=== PATIENT | female | born 1940 | race Caucasian/White ===

== ENCOUNTER 2017-07-26 11:07 | Inpatient (IN) ==
[2017-07-26] MEDS ORDERED: *HR* OxyCODONE Immed Rel 5 MG TABLET PO PRN (15:17)
[2017-07-26] MEDS ORDERED: *HR* LORazepam 0.5 MG TABLET PO PRN (15:22)
--- NOTE | 2017-07-26 15:30 | Internal Med History&Physical ---
Date of Encounter: 07/26/17 Time of Encounter: 15:28 Assessment and Plan (1) Arthritis of knee, right Current visit: No Status: Chronic Patient had a degenerative arthritis of the right knee and subsequently underwent surgery (2) Status post total knee replacement, right Current visit: No Status: Acute Patient had a right total knee replacement for osteoarthritis Internal Medicine - H&P: HPI Chief complaint: Patient had a right total knee replacement due to osteoarthritis Admitted From: Hospital to Hospital Transfer Plans for Post Hospital Care: Home History of present illness: Ms. Lucas is a 76 year old female She is here now for rehabilitation. Past Med Surg Social Fam HX - Past Medical History Medical history: asthma, GERD, hyperlipidemia, hypertension, thyroid disease, other Psychiatric history: no psych history - Past Surgical History Surgical History: cholecystectomy, hysterectomy, orthopedic, other, sinus surgery, thyroidectomy, other - Social History Smoking Status: Never smoker Smokeless Tobacco Status: No Alcohol use: none Drug use: none Internal Medicine - H&P: Meds Esomeprazole Magnesium [Nexium] 40 mg PO DAILY 07/09/15 [History] amLODIPine [Norvasc] 10 mg PO DAILY 07/09/15 [History] Ezetimibe 10 mg PO DAILY 06/09/17 [History] Gemfibrozil [Lopid] 600 mg PO BID 06/09/17 [History] Ibuprofen [Motrin] 600 mg PO Q6HR PRN 06/09/17 [History] Levothyroxine Sodium [Levoxyl] 100 mcg PO 0630 06/09/17 [History] Mv-Mn/FA/Vit K/Lycop/Lut/Coq10 [Daily Multivitamin Capsule] 1 tab PO DAILY 06/09 [History] Aspirin Enteric Coated [Aspirin EC] 325 mg PO DAILY #21 tablet. 07/24/17 [Rx] Biotin 300 mcg PO DAILY 07/24/17 [History] Budesonide/Formoterol 160/4.5 [Symbicort 160/4.5] 2 puff IH BIDR 07/24/17 [ History] LORazepam [Ativan] 0.5 mg PO DAILY PRN 07/24/17 [History] LORazepam [Ativan] 0.5 mg PO DAILY PRN #5 tablet 07/24/17 [Rx] Montelukast [Singulair] 10 mg PO HS 07/24/17 [History] OxyCODONE Immed Rel [Roxicodone 5 MG] 5 mg PO Q6HR PRN #28 tablet 07/24/17 [Rx] 3 Allergy/AdvReac Type Severity Reaction Status Date / Time Penicillins Allergy Itching Verified 07/24/17 09:26 Sulfa (Sulfonamide Allergy Itching Verified 07/24/17 09:26 Antibiotics) Espzdii-Boa-Vcd Reductase AdvReac Muscle Pain Verified 07/24/17 09:26 Inhibitor [Statins] All Systems PM: A 10-system review of systems was performed and is negative for pertinent findings except as documented above in the HPI. - Constitutional Vitals: Temp Pulse Resp BP Pulse Ox 97.8 F 103 16 160/74 95 07/26/17 15:04 07/26/17 15:04 07/26/17 15:04 07/26/17 15:04 07/26/17 15:04 - Head Head exam: Present: atraumatic, normal inspection, normocephalic - Neck Neck exam general surgery: Present: supple, trachea midline. Absent: lymphadenopathy - Respiratory Respiratory exam: Present: CTAB. Absent: accessory muscle use, rales, rhonchi, wheezes - Cardiovascular Cardiovascular exam: Present: RRR, +S1, +S2. Absent: diastolic murmur, gallop, rubs, systolic murmur Internal Med - H&P Results - Labs Labs: This lab is pending
[2017-07-26] MEDS: traMADol 50 MG TABLET PO PRN ×2 (15:50→23:16)
[2017-07-26] MEDS: Budesonide/Formoterol 160/4.5 MDI IH SCH (22:58)
[2017-07-27 05:31] LABS: Basophils % 0.2 %; Eosinophils # 0.1 K/mcL (0.0-0.6); Eosinophils % 0.6 %; Hematocrit 25.3 % (35.3-44.9); Hemoglobin 8.7 g/dL (11.5-15.4); Immature Granulocytes % 0.5 % (0-4); Lymphocytes # 1.5 K/mcL (0.6-4.6); Lymphocytes % 15.3 %; Mean Corpuscular HGB Conc 34.4 g/dL (31.6-35.5); Mean Corpuscular Hemoglobin 30.5 pg (28.0-33.3); Mean Corpuscular Volume 88.8 fL (83.0-100.0); Mean Platelet Volume 10.3 fL (9.4-12.4); Monocytes # 1.2 K/mcL (0.0-1.3); Monocytes % 12.4 %; Neutrophils # 6.7 K/mcL (1.6-8.9); Platelet Count 204 K/mcL (140-400); Red Blood Count 2.85 M/mcL (3.82-4.97)
[2017-07-27 05:36] LABS: INR 1.1
[2017-07-27 05:39] LABS: Activated Partial Thrombo Time 32.1 Seconds (26.0-36.0)
[2017-07-27 05:48] LABS: BUN/Creatinine Ratio 13 (6-26); Blood Urea Nitrogen 8 mg/dL (7-20); Calcium 9.1 mg/dL (8.6-10.8); Carbon Dioxide 23 mEq/L (19-29); Chloride 101 mEq/L (98-109); Glucose 105 mg/dL (70-99); Osmolality,Calculated 277 (280-300); Potassium 3.8 mEq/L (3.5-4.5); Sodium 134 mEq/L (136-145); eGFR For African Americans > 60 (> 60); eGFR For Non-African Americans > 60 (> 60)
[2017-07-27] MEDS: traMADol 50 MG TABLET PO PRN ×2 (06:00→17:49)
[2017-07-27] MEDS: Aspirin 325 MG TABLET PO SCH (09:38)
[2017-07-27] MEDS: amLODIPine 5 MG TABLET PO SCH (09:39)
[2017-07-27] MEDS: Ibuprofen 600 MG TABLET PO PRN (09:44)
[2017-07-27] MEDS: Budesonide/Formoterol 160/4.5 MDI IH SCH ×2 (09:45→22:15)
--- NOTE | 2017-07-27 20:42 | Internal Med Progress Note ---
Date of Encounter: 07/27/17 Time of Encounter: 20:40 - Assessment and plan (1) Status post total knee replacement, right Current Visit: Yes Status: Acute Assessment and plan: stable constipated PRN laxative increase fluid intake (2) Hypertension Current Visit: No Status: Chronic Assessment and plan: stable no acute issues Qualifiers: Hypertension type: unspecified secondary hypertension Qualified Code(s): I15.9 - Secondary hypertension, unspecified; I15 - Secondary hypertension (3) Thyroid disease Current Visit: No Status: Chronic - Subjective Interval history: seen for the first time no acute issues except for constipation . cross coverage - Constitutional Vitals: Temp Pulse Resp BP Pulse Ox 97.9 F 93 18 139/73 94 07/27/17 11:00 07/27/17 11:00 07/27/17 11:00 07/27/17 11:00 07/27/17 11:00 General appearance: Present: A&O X 3, pleasant, no acute distress, answers questions appropriately - Head Head exam: Present: atraumatic - Eye Eye exam: Present: EOMI, PERRL. Absent: scleral icterus, conjuntiva pink - ENT ENT exam: Present: normal exam - Neck Neck exam general surgery: Present: supple. Absent: nuchal rigidity - Respiratory Respiratory exam: Present: CTAB. Absent: respiratory distress, rhonchi, stridor , wheezes - Cardiovascular Cardiovascular exam: Present: RRR, +S1, +S2. Absent: irregular rhythm, JVD - GI/Abdominal GI/Abdominal exam: Present: normal bowel sounds, soft. Absent: rebound, rigid, tenderness - Extremities Exam Extremities exam: Absent: pedal edema, tenderness - Neurological Exam Neurological exam: Present: CN II-XII intact, oriented X3, strengths equal and symetr throughout. Absent: facial droop, speech deficit Internal Medicine: Result - Labs CBC & Chem 7: 07/27/17 05:10 07/27/17 05:10 Labs: Short CBC 07/27/17 Range/Units 05:10 WBC 9.5 (4.3-11.1) K/mcL Hgb 8.7 L (11.5-15.4) g/dL Hct 25.3 L (35.3-44.9) % Plt Count 204 (140-400) K/mcL Neutrophils # 6.7 (1.6-8.9) K/mcL BMP 07/27/17 05:10 Sodium 134 L Potassium 3.8 Chloride 101 Carbon Dioxide 23 BUN 8 Creatinine 0.63 Glucose 105 H Calcium 9.1 - ABG Interpretation ABG results: PT/INR, D-dimer PT 12.0 Seconds (9.4-12.1) 07/27/17 05:10 - VTE Documentation of Mechanical Device: Graduated compression elastic hosiery Consult Discharge Plan - Plan Referrals: Nima Salmon MD [Primary Care Provider] -
[2017-07-28] MEDS: Ibuprofen 600 MG TABLET PO PRN ×2 (06:38→16:57)
[2017-07-28] MEDS: amLODIPine 5 MG TABLET PO SCH (08:19)
[2017-07-28] MEDS: traMADol 50 MG TABLET PO PRN ×2 (08:19→16:52)
[2017-07-28] MEDS: Aspirin 325 MG TABLET PO SCH (08:19)
[2017-07-28] MEDS: Budesonide/Formoterol 160/4.5 MDI IH SCH ×2 (09:59→21:31)
--- NOTE | 2017-07-28 17:44 | Internal Med Progress Note ---
Date of Encounter: 07/28/17 Time of Encounter: 17:42 - Assessment and plan (1) Status post total knee replacement, right Current Visit: Yes Status: Acute Assessment and plan: stable Pian well controlled med s adjusted (2) Hypertension Current Visit: No Status: Chronic Assessment and plan: stable no new change Qualifiers: Hypertension type: unspecified secondary hypertension Qualified Code(s): I15.9 - Secondary hypertension, unspecified; I15 - Secondary hypertension (3) Thyroid disease Current Visit: No Status: Chronic Assessment and plan: stable on meds will get TSH - Subjective Interval history: no new complains interested in getting ativan every night nd decreasing her ultram to once a day only as it makes her naused pain is well controlled and doesn't seems to be an issue for her - Constitutional Vitals: Temp Pulse Resp BP Pulse Ox 98.1 F 90 16 128/75 97 07/28/17 07:00 07/28/17 07:00 07/28/17 07:00 07/28/17 07:00 07/28/17 07:00 General appearance: Present: A&O X 3, pleasant, no acute distress, answers questions appropriately - Head Head exam: Present: atraumatic - Eye Eye exam: Present: EOMI, PERRL - Neck Neck exam general surgery: Present: supple. Absent: tenderness, nuchal rigidity - Respiratory Respiratory exam: Present: CTAB. Absent: respiratory distress, rhonchi, stridor , tachypnea - Cardiovascular Cardiovascular exam: Present: RRR, +S1, +S2. Absent: irregular rhythm, JVD - GI/Abdominal GI/Abdominal exam: Present: normal bowel sounds, soft. Absent: distended, firm , guarding, rebound, rigid - Neurological Exam Neurological exam: Present: CN II-XII intact, oriented X3, no focal deficits, strengths equal and symetr throughout. Absent: facial droop, speech deficit Internal Medicine: Result - Labs CBC & Chem 7: 07/27/17 05:10 07/27/17 05:10 - ABG Interpretation ABG results: PT/INR, D-dimer PT 12.0 Seconds (9.4-12.1) 07/27/17 05:10 - VTE Documentation of Mechanical Device: Graduated compression elastic hosiery Consult Discharge Plan - Plan Referrals: Nima Salmon MD [Primary Care Provider] -
[2017-07-28] MEDS: *HR* LORazepam 0.5 MG TABLET PO SCH (21:31)
[2017-07-29] MEDS: Ibuprofen 600 MG TABLET PO PRN ×3 (03:33→18:53)
[2017-07-29] MEDS: amLODIPine 5 MG TABLET PO SCH (08:01)
[2017-07-29] MEDS: Aspirin 325 MG TABLET PO SCH (08:01)
[2017-07-29] MEDS: traMADol 50 MG TABLET PO SCH (08:02)
--- NOTE | 2017-07-29 10:08 | Internal Med Progress Note ---
Date of Encounter: 07/29/17 Time of Encounter: 10:06 - Assessment and plan (1) Status post total knee replacement, right Current Visit: Yes Status: Acute Assessment and plan: stable getting rehab no new issues ashley is well controlled (2) Hypertension Current Visit: No Status: Chronic Assessment and plan: BP is slightly high will followup and adjsut her meds as needed Qualifiers: Hypertension type: unspecified secondary hypertension Qualified Code(s): I15.9 - Secondary hypertension, unspecified; I15 - Secondary hypertension (3) Thyroid disease Current Visit: No Status: Chronic Assessment and plan: stable Her h/h is slow will add iron and followup - Subjective Interval history: No new complains slept better and pain is well controlled on new regimen - Constitutional Vitals: Temp Pulse Resp BP Pulse Ox 97.6 F 83 16 151/72 98 07/29/17 07:03 07/29/17 07:03 07/29/17 07:03 07/29/17 07:03 07/29/17 07:03 General appearance: Present: A&O X 3, pleasant, no acute distress, answers questions appropriately - Eye Eye exam: Present: EOMI, PERRL. Absent: scleral icterus, conjuntiva pink Pupils: Present: PERRL - Neck Neck exam general surgery: Present: supple. Absent: tenderness, nuchal rigidity - Respiratory Respiratory exam: Present: CTAB. Absent: respiratory distress, rhonchi, stridor , wheezes, tachypnea - Cardiovascular Cardiovascular exam: Present: RRR, +S1, +S2. Absent: irregular rhythm, JVD - GI/Abdominal GI/Abdominal exam: Present: normal bowel sounds, soft. Absent: firm, pulsatile mass, rebound, rigid - Incison Incision: Present: clean and dry Internal Medicine: Result - Labs CBC & Chem 7: 07/27/17 05:10 07/27/17 05:10 - ABG Interpretation ABG results: PT/INR, D-dimer PT 12.0 Seconds (9.4-12.1) 07/27/17 05:10 - VTE Documentation of Mechanical Device: Graduated compression elastic hosiery Consult Discharge Plan - Plan Referrals: Nima Salmon MD [Primary Care Provider] -
[2017-07-29] MEDS: Budesonide/Formoterol 160/4.5 MDI IH SCH ×2 (13:15→22:31)
[2017-07-29] MEDS: *HR* LORazepam 0.5 MG TABLET PO SCH (22:31)
[2017-07-30] MEDS: Ibuprofen 600 MG TABLET PO PRN ×3 (07:03→17:24)
[2017-07-30] MEDS: amLODIPine 5 MG TABLET PO SCH (09:02)
[2017-07-30] MEDS: Aspirin 325 MG TABLET PO SCH (09:02)
[2017-07-30] MEDS: Budesonide/Formoterol 160/4.5 MDI IH SCH ×2 (09:03→21:37)
[2017-07-30] MEDS: traMADol 50 MG TABLET PO SCH (09:03)
[2017-07-30] MEDS: Acetaminophen 325 MG TABLET PO PRN ×2 (09:41→15:34)
--- NOTE | 2017-07-30 10:14 | Internal Med Progress Note ---
Date of Encounter: 07/30/17 Time of Encounter: 10:11 - Assessment and plan (1) Status post total knee replacement, right Current Visit: Yes Status: Acute (2) Hypertension Current Visit: No Status: Chronic Qualifiers: Hypertension type: unspecified secondary hypertension Qualified Code(s): I15.9 - Secondary hypertension, unspecified; I15 - Secondary hypertension (3) Thyroid disease Current Visit: No Status: Chronic - Subjective Interval history: Doing much better , pain is well controlled not taking any narcotics for her pain any more using Tylenol only sleeping wel - Constitutional Vitals: Temp Pulse Resp BP Pulse Ox 99.5 F 95 16 141/68 98 07/30/17 07:39 07/30/17 07:39 07/30/17 07:39 07/30/17 07:39 07/30/17 07:39 General appearance: Present: A&O X 3, pleasant, no acute distress, answers questions appropriately - Head Head exam: Present: atraumatic - Eye Eye exam: Present: EOMI, PERRL. Absent: scleral icterus, conjuntiva pink - Neck Neck exam general surgery: Present: supple. Absent: tenderness, nuchal rigidity - Respiratory Respiratory exam: Present: CTAB. Absent: respiratory distress, rhonchi, stridor , wheezes, tachypnea - Cardiovascular Cardiovascular exam: Present: RRR, +S1, +S2. Absent: irregular rhythm, JVD - GI/Abdominal GI/Abdominal exam: Present: normal bowel sounds, soft. Absent: guarding, mass, rebound, rigid - Extremities Exam Extremities exam: Absent: pedal edema, tenderness, warm Internal Medicine: Result - Labs CBC & Chem 7: 07/27/17 05:10 07/27/17 05:10 - ABG Interpretation ABG results: PT/INR, D-dimer PT 12.0 Seconds (9.4-12.1) 07/27/17 05:10 - VTE Documentation of Mechanical Device: Graduated compression elastic hosiery Consult Discharge Plan - Plan Referrals: Nima Salmon MD [Primary Care Provider] -
[2017-07-30] MEDS: *HR* LORazepam 0.5 MG TABLET PO SCH (21:37)
[2017-07-31] MEDS: Ibuprofen 600 MG TABLET PO PRN (05:54)
[2017-07-31 06:10] LABS: Basophils % 0.4 %; Eosinophils # 0.4 K/mcL (0.0-0.6); Eosinophils % 6.4 %; Hematocrit 23.6 % (35.3-44.9); Hemoglobin 8.1 g/dL (11.5-15.4); Immature Granulocytes % 0.4 % (0-4); Lymphocytes # 1.5 K/mcL (0.6-4.6); Lymphocytes % 22.6 %; Mean Corpuscular HGB Conc 34.3 g/dL (31.6-35.5); Mean Corpuscular Hemoglobin 30.9 pg (28.0-33.3); Mean Corpuscular Volume 90.1 fL (83.0-100.0); Mean Platelet Volume 9.8 fL (9.4-12.4); Monocytes # 0.8 K/mcL (0.0-1.3); Monocytes % 11.9 %; Neutrophils # 3.9 K/mcL (1.6-8.9); Platelet Count 347 K/mcL (140-400); Red Blood Count 2.62 M/mcL (3.82-4.97); Red Cell Distribution Width 13.2 % (11.5-14.5); Segmented Neutrophils % 58.3 %
[2017-07-31 06:44] LABS: BUN/Creatinine Ratio 18 (6-26); Blood Urea Nitrogen 13 mg/dL (7-20); Calcium 9.5 mg/dL (8.6-10.8); Carbon Dioxide 23 mEq/L (19-29); Chloride 105 mEq/L (98-109); Glucose 87 mg/dL (70-99); Osmolality,Calculated 283 (280-300); Sodium 137 mEq/L (136-145); eGFR For African Americans > 60 (> 60); eGFR For Non-African Americans > 60 (> 60)
[2017-07-31 08:00] VITALS: BP 147/76
[2017-07-31] MEDS: amLODIPine 5 MG TABLET PO SCH (09:51)
[2017-07-31] MEDS: Aspirin 325 MG TABLET PO SCH (09:52)
[2017-07-31] MEDS: Acetaminophen 325 MG TABLET PO PRN (09:52)
--- NOTE | 2017-07-31 18:32 | Physician Discharge Referral ---
- Diagnosis (1) Status post total knee replacement, right Priority: Primary Status: Acute (2) Hypertension Priority: Secondary Status: Chronic (3) Thyroid disease Priority: Secondary Status: Chronic - Respiratory Orders Smoking Cessation: Smoking cessation has been advised. For more information, call the [place] Tobacco Quit Line at 5-913-STPC-NOW. - Diet/Nutrition Diet/Nutrition Orders: Regular - Activity Activity Orders: Walker - Services Needed Following services are medically necessary services: Nursing, Home Health Aide, Physical Therapy, Occupational Therapy - Transfer Medications Home Medications: Esomeprazole Magnesium [Nexium] 40 mg PO DAILY 07/09/15 [History] amLODIPine [Norvasc] 10 mg PO DAILY 07/09/15 [History] Ezetimibe 10 mg PO DAILY 06/09/17 [History] Gemfibrozil [Lopid] 600 mg PO BID 06/09/17 [History] Ibuprofen [Motrin] 600 mg PO Q6HR PRN 06/09/17 [History] Levothyroxine Sodium [Levoxyl] 100 mcg PO 0630 06/09/17 [History] Mv-Mn/FA/Vit K/Lycop/Lut/Coq10 [Daily Multivitamin Capsule] 1 tab PO DAILY 06/09 [History] Aspirin Enteric Coated [Aspirin EC] 325 mg PO DAILY #21 tablet. 07/24/17 [Rx] Biotin 300 mcg PO DAILY 07/24/17 [History] Budesonide/Formoterol 160/4.5 [Symbicort 160/4.5] 2 puff IH BIDR 07/24/17 [ History] LORazepam [Ativan] 0.5 mg PO DAILY PRN 07/24/17 [History] LORazepam [Ativan] 0.5 mg PO DAILY PRN #5 tablet 07/24/17 [Rx] Montelukast [Singulair] 10 mg PO HS 07/24/17 [History] OxyCODONE Immed Rel [Roxicodone 5 MG] 5 mg PO Q6HR PRN #28 tablet 07/24/17 [Rx] Allergies/Adverse Reactions: 3 Allergy/AdvReac Type Severity Reaction Status Date / Time Penicillins Allergy Itching Verified 07/24/17 09:26 Sulfa (Sulfonamide Allergy Itching Verified 07/24/17 09:26 Antibiotics) Howgxfc-Isy-Xwq Reductase AdvReac Muscle Pain Verified 07/24/17 09:26 Inhibitor [Statins] Certification: Further, I certify that my clinical findings support that this patient is homebound (i.e. absences from home require considerable and taxing effort and are for medical reasons or tenriism services or infrequently or short duration when for other reasons) because: Homebound Reason: Patient requires assistance of a person or device to safely leave home, Post-surgery restriction and or conditions limit ability to leave home Attestation: My signature below is to certify that this patient is under my care and that I, or nurse practitioner, or a physician's residential real estate assistant working with me, has a face-to -face encounter with this patient.
--- NOTE | 2017-07-31 18:36 | Discharge Summary ---
Date of Encounter: 07/31/17 Time of Encounter: 18:34 - Discharge Diagnosis (1) Status post total knee replacement, right Priority: Primary Status: Acute (2) Hypertension Priority: Secondary Status: Chronic Qualifiers: Hypertension type: unspecified secondary hypertension Qualified Code(s): I15.9 - Secondary hypertension, unspecified; I15 - Secondary hypertension (3) Thyroid disease Priority: Secondary Status: Chronic - Discharge Medications Home Medications: Esomeprazole Magnesium [Nexium] 40 mg PO DAILY 07/09/15 [History] amLODIPine [Norvasc] 10 mg PO DAILY 07/09/15 [History] Ezetimibe 10 mg PO DAILY 06/09/17 [History] Gemfibrozil [Lopid] 600 mg PO BID 06/09/17 [History] Ibuprofen [Motrin] 600 mg PO Q6HR PRN 06/09/17 [History] Levothyroxine Sodium [Levoxyl] 100 mcg PO 0630 06/09/17 [History] Mv-Mn/FA/Vit K/Lycop/Lut/Coq10 [Daily Multivitamin Capsule] 1 tab PO DAILY 06/09 [History] Aspirin Enteric Coated [Aspirin EC] 325 mg PO DAILY #21 tablet. 07/24/17 [Rx] Biotin 300 mcg PO DAILY 07/24/17 [History] Budesonide/Formoterol 160/4.5 [Symbicort 160/4.5] 2 puff IH BIDR 07/24/17 [ History] LORazepam [Ativan] 0.5 mg PO DAILY PRN 07/24/17 [History] LORazepam [Ativan] 0.5 mg PO DAILY PRN #5 tablet 07/24/17 [Rx] Montelukast [Singulair] 10 mg PO HS 07/24/17 [History] OxyCODONE Immed Rel [Roxicodone 5 MG] 5 mg PO Q6HR PRN #28 tablet 07/24/17 [Rx] Allergies/Adverse Reactions: 3 Allergy/AdvReac Type Severity Reaction Status Date / Time Penicillins Allergy Itching Verified 07/24/17 09:26 Sulfa (Sulfonamide Allergy Itching Verified 07/24/17 09:26 Antibiotics) Jqgbpiy-Wpl-Lvk Reductase AdvReac Muscle Pain Verified 07/24/17 09:26 Inhibitor [Statins] Date of admission: 07/26/17 13:51 Primary care physician: Nima Salmon MD Consults: 07/26/17 15:11 Consult to Occupational Therapy [CONS] Routine Comment: Evaluate, develop and implement POC Reason for Consult: Right knee replacement Consult to Physical Therapy [CONS] Routine Comment: Evaluate, develop and implement POC Reason for Consult: Right knee replacement Consult to Recreational Therapy [CONS] Routine Comment: Evaluate, develop and implement POC Consult to Singe Machine Operator [CONS] Routine Reason for SW Consult: Right knee replacement - Patient Status Disposition: Home Health Service Condition: Good Overall status at discharge: patient is progressing back to baseline - Discharge Instructions Follow Up With: Felice Zavala MD [Partnered Physician] - 08/03/17 1:30 pm Nima Salmon MD [Primary Care Provider] - - Diet and Activity Activity: ambulate only with your walker Diet: advance to your usual diet Hospital course: Ms. Lucas is a 76 year old female her course uneventful she did well in her T and was discharged in stable condition - Time Spent with Patient Total time spent providing and/or coordinating discharge services: - Constitutional Vitals: Temp Pulse Resp BP Pulse Ox 98 F 80 16 147/76 94 07/31/17 07:59 07/31/17 07:59 07/31/17 07:59 07/31/17 07:59 07/31/17 07:59 General appearance: Present: A&O X 3, pleasant, no acute distress, answers questions appropriately Exam: pt left before my exmination however she was sen yerstaday and she was stable no new changes in her condition - VTE Documentation of Mechanical Device: Graduated compression elastic hosiery
== END 2017-07-31 15:30 | disposition home health service (06) | DRG 561 ==
LOC: INPGRE 13:51
PROVIDERS: ADMIT Internal Medicine; ATTEND Internal Medicine